=== PATIENT | female | born 1980 | race Caucasian/White ===

== ENCOUNTER 2023-11-29 22:31 | Emergency (ER) | payer OTHER, SELFPAY ==
--- NOTE | ~2023-11-29 | XR_ITS ---
EXAMINATION: XR LUMBOSACRAL SPINE CLINICAL INFORMATION: Pain COMPARISON: None available. TECHNIQUE: Three views of the lumbosacral spine. FINDINGS: Vertebral body heights are maintained. Left L4-L5 facet hypertrophy. No acute fracture. The disc spaces are preserved and the vertebral alignment is normal. Three left sacroiliac arthrodesis screws. The paraspinal soft tissues are normal. XR/XR lumbar spine 2-3V IMPRESSION: 1. No acute fracture or spondylolisthesis of the lumbar spine. 2. Left sacroiliac arthrodesis screws.
--- NOTE | ~2023-11-29 | XR_ITS ---
EXAMINATION: XR HIP, LEFT CLINICAL INFORMATION: Pain. COMPARISON: None available. TECHNIQUE: Two views of the left hip. FINDINGS: The bone mineralization is normal. The joint spaces are maintained. There is no fracture. Left sacroiliac surgical screws are seen in place. The soft tissues are unremarkable XR/XR hip LT w PEL1V IMPRESSION: 1. Unremarkable left hip. 2. Left sacroiliac surgical screws are seen in place.
[2023-11-29 22:50] VITALS: BP 127/80; PULSE 79; RESP 18; TEMP 36.7; O2SAT 97; BMI 28.6
--- NOTE | 2023-11-29 23:18 | ED.GENADULT ---
HPI - General Adult General Chief complaint: Back Pain/Injury Stated complaint: fractures in the spine/screws in left hip Time Seen by Provider: 11/29/23 23:18 History of Present Illness ED Provider: Alcon QUINTANA narrative: The patient is a 43-year-old female who says that she has had low back surgery and also had surgery for her left SI joint. The surgeries were done in [place]. The patient says that about a week ago her teenage son accidentally ?hip checked her when he and his older brother were horsing around. She has had pain in the region of her left SI joint and low back ever since. The pain radiates down the left leg. No complaint of bowel or bladder control problems. The patient has recently returned to this area from out of state and has not yet established any local medical providers Related Data Previous Rx's ?Medication ?Instructions ?Recorded cyclobenzaprine 10 mg tablet 10 mg PO TID PRN muscle spasm #14 11/30/23 tabs Allergies Allergy/AdvReac Type Severity Reaction Status Date / Time sulfamethoxazole Allergy Hives Verified 11/29/23 22:53 [From Bactrim] trimethoprim [From Bactrim] Allergy Hives Verified 11/29/23 22:53 ibuprofen AdvReac Unknown Verified 11/29/23 22:53 NSAIDS (Non-Steroidal AdvReac Unknown Verified 11/29/23 22:53 Anti-Inflamma tramadol AdvReac Anaphylaxis Verified 11/29/23 22:53 trazodone AdvReac Anaphylaxis Verified 11/29/23 22:53 Review of Systems Review of Systems: Yes all other systems are reviewed and are negative PMFSH Social History Social History Smoked in Last 30 Days: Yes Advance Directives: No Advance Directives Information Provided: No Do you have a plan to hurt others: No Plan Patient : No Physical Exam ED Vital Signs: Vital Signs - 24 hr 11/29/23 22:50 11/29/23 23:21 11/30/23 00:57 Temperature 98.0 F 98.3 F 98.3 F Pulse Rate 79 70 65 Respiratory Rate 18 17 17 Blood Pressure 127/80 120/69 127/76 Pulse Oximetry 97 98 98 Oxygen Delivery Method Room Air Room Air Room Air BMI result Body Mass Index 28.6 Const Other: The patient is awake and alert. She does not appear in overt distress or toxic. She seemed to be moving around fairly easily. HENMT Other: Face is symmetrical. Mucous membranes moist. Eyes Other: Pupils were round equal, conjunctivae clear Neck Other: Moving her neck easily Back/Spine/Pelvis Other: The patient had midline tenderness in the lumbar spine region. Also left-sided paraspinous tenderness. Skin Other: Skin is dry and unremarkable Neuro Other: 2+ reflexes at the knees and ankles. Toes go down bilaterally. Intact strength and sensation. Gait seemed steady. Extrem Other: No peripheral edema. No calf swelling or tenderness Medications Administered Discontinued Medications Generic Name Dose Route Start Last Admin Trade Name Freq PRN Reason Stop Dose Admin Acetaminophen 975 mg 11/30/23 00:39 11/30/23 00:55 Acetaminophen 325 Mg Tablet PO 11/30/23 00:40 975 mg ONCE ONE Administration Cyclobenzaprine HCl 10 mg 11/30/23 00:39 11/30/23 00:56 Cyclobenzaprine Hcl 10 Mg Tablet PO 11/30/23 00:40 10 mg ONCE ONE Administration Medical Decision Making Medical Decision Making MDM Narrative: The patient presents complaining of left hip pain after an injury several days ago. She has a history of a lumbar surgery and left sacroiliac surgery. X-rays of the lumbar spine and the pelvis are unremarkable. Surgical hardware looks intact. The patient seems neurologically intact. The patient is reassured. She will be treated with acetaminophen and cyclobenzaprine. She is encouraged to try to get a regular doctor. Discharge Plan Discharge Clinical Impression: Acute left-sided low back pain Patient Disposition: Home, Self-Care Instructions: Acute Low Back Pain (ED) Additional Instructions: Your x-rays do not show any concerning changes to your spine or your left SI joint. I suspect that a lot of the muscles in your left lower back have been irritated. You may use acetaminophen (Tylenol), 2 extra-strength tablets at a time up to 3 times a day. I have also sent a prescription for a muscle relaxant, cyclobenzaprine, that you may use up to 3 times a day as well. No driving on this medication as it may make you drowsy. Please work on getting a new primary care doctor. Return to the emergency room if significantly worse. Prescriptions: New cyclobenzaprine 10 mg tablet 10 mg PO TID PRN (Reason: muscle spasm) Qty: 14 0RF Interventions: ED Discharge Assessment Last Done: 11/30/23 00:57 Discharge Date/Time: 11/30/23 01:00 Print Language: Faroese
[2023-11-29 23:21] VITALS: BP 120/69; PULSE 70; RESP 17; TEMP 36.8; O2SAT 98
[2023-11-30] MEDS: Acetaminophen 325 MG TABLET 975 MG PO (00:55)
[2023-11-30] MEDS: Cyclobenzaprine HCl 10 MG TABLET PO (00:56)
[2023-11-30 00:57] VITALS: BP 127/76; PULSE 65; RESP 17; TEMP 36.8; O2SAT 98
== END 2023-11-30 01:00 | disposition home or self-care (01) ==
PROVIDERS: Emergency Provider Emergency Medicine
DX: M54.50 Low back pain, unspecified (principal)
CPT/HCPCS: 72100; 73502; 99283; 99284

== ENCOUNTER 2024-03-18 18:49 | Emergency (ER) | payer MEDICAID, SELFPAY ==
--- NOTE | ~2024-03-18 | CT_ITS ---
EXAMINATION: CT ABDOMEN AND PELVIS WITHOUT CONTRAST CLINICAL INFORMATION: Abdominal pain. COMPARISON: None available. TECHNIQUE: Multidetector volumetric imaging was performed from the superior aspect of the liver through the pubic symphysis. Sagittal and coronal reformatted images were obtained on the technologist's workstation. This CT examination was performed using dose optimization techniques as appropriate, variously including the following: *Automated exposure control *Adjustment of mA and/or kV according to patient size (this includes techniques or standardized protocols for targeted exams where dose is matched to indication/reason for exam; i.e. extremities or head) *Use of iterative reconstruction technique DLP: 555 mGy-cm FINDINGS: LUNG BASES: The visualized lung bases are unremarkable. LIVER, GALLBLADDER, AND BILIARY TREE: The liver is normal in size, shape, and attenuation. No focal hepatic lesion or biliary ductal dilatation is present. The gallbladder is unremarkable with no evidence of radiopaque gallstones, gallbladder wall thickening, or obvious pericholecystic inflammatory changes. PANCREAS: Unremarkable. SPLEEN: Unremarkable. ADRENAL GLANDS: Unremarkable. KIDNEYS AND URETERS: The kidneys are normal in size, shape, and attenuation. No hydronephrosis, hydroureter, or calculi seen. No perinephric stranding. BLADDER: Unremarkable. GASTROINTESTINAL TRACT: The small and large bowel are unremarkable. The appendix is not seen. There are surgical clips at the base of the cecum. ABDOMINAL WALL: No significant hernia is appreciated. LYMPH NODES: Normal. VASCULAR: Unremarkable. PELVIC VISCERA: Unremarkable. OSSEOUS STRUCTURES: There is postsurgical change of the left pelvis/sacrum. CT/CT abdomen pelvis wo IV con IMPRESSION: No significant abnormality. Fleischner guidelines were followed. Electronically signed by: Bc Whittaker MD 03/19/2024 04:42 AM EST
--- NOTE | 2024-03-18 18:56 | ED.GENADULT ---
HPI - General Adult General Chief complaint: Abdominal Pain Stated complaint: stomach pain/ear & throat pain Time Seen by Provider: 03/19/24 01:06 Source: patient Mode of arrival: ambulatory Limitations: no limitations History of Present Illness ED Provider: DR. Rivera HPI narrative: 43-year-old female presented with 2 days of bilateral ear pain, sore throat, abdominal pain, feeling nauseous, no diarrhea, no vomiting, no recent travel, no recent use of antibiotic, no exposure to bad food, no sick contacts. Last bowel movement was this morning patient said was black stool, passing gas. Surgical history is significant for appendectomy. Related Data Previous Rx's ?Medication ?Instructions ?Recorded cyclobenzaprine 10 mg tablet 10 mg PO TID PRN muscle spasm #14 11/30/23 tabs Allergies Allergy/AdvReac Type Severity Reaction Status Date / Time sulfamethoxazole Allergy Hives Verified 03/18/24 19:01 [From Bactrim] trimethoprim [From Bactrim] Allergy Hives Verified 03/18/24 19:01 ibuprofen AdvReac Unknown Verified 03/18/24 19:01 NSAIDS (Non-Steroidal AdvReac Unknown Verified 03/18/24 19:01 Anti-Inflamma tramadol AdvReac Anaphylaxis Verified 03/18/24 19:01 trazodone AdvReac Anaphylaxis Verified 03/18/24 19:01 Review of Systems Review of Systems: All other systems are reviewed and are negative Constitutional: Reports as per HPI and Reports no additional constitutional complaints Eyes: Reports as per HPI and Reports no additional eye complaints Reports system reviewed and no additional complaints, except as documented Cardiovascular: Reports as per HPI and Reports no additional cardiovascular complaints Respiratory: Reports as per HPI and Reports no additional respiratory complaints Gastrointestinal: Reports as per HPI and Reports no additional gastrointestinal complaints Genitourinary: Reports no additional female genitourinary complaints Musculoskeletal: Reports no additional musculoskeletal complaints Skin/Breast: Reports system reviewed and no additional complaints, except as docu Psychiatric: Reports no additional psychiatric complaints Endocrine: Reports no additional endocrine complaints Hematologic/Lymphatic: Reports no additional hematologic/lymphatic complaints Allergic/Immunologic: Reports no additional allergic/immunologic complaints Reports system reviewed and no additional complaints, except as documented and Reports Abnormal speech present PMFSH Social History Social History Advance Directives: No Advance Directives Information Provided: No Physical Exam ED Vital Signs: Vital Signs - 24 hr 03/18/24 18:57 03/18/24 21:53 03/19/24 00:36 Temperature 98.4 F 97.6 F 98.3 F Pulse Rate 103 H 95 86 Respiratory Rate 16 16 17 Blood Pressure 127/69 133/79 118/71 Pulse Oximetry 98 98 99 Oxygen Delivery Method Room Air Room Air Room Air 03/19/24 02:32 Temperature 98.0 F Pulse Rate 72 Respiratory Rate 16 Blood Pressure 127/60 Pulse Oximetry 99 Oxygen Delivery Method Room Air BMI result Body Mass Index 29.7 Vital signs have been reviewed and appear to be correct. Blood pressure elevated. Heart rate normal. Respiratory rate normal. Temperature normal. Oxygen saturation normal. Appearance: Alert. Oriented X3. No acute distress. Head: Normal external exam. Normocephalic. Atraumatic. No Chambers signs noted. No raccoon eyes noted Eyes: PERRLA. EOMI. Conjunctiva and sclera normal. Eyelids normal. ENT: TM's Normal. Pharynx normal. Uvula midline. Moist mucous membranes. No trismus noted. No drooling noted. No muffled voice noted. Neck: Normal inspection. Neck supple. FROM. No adenopathy. Thyroid Normal. No meningeal signs. No neck mass noted. CVS: Normal heart rate and rhythm. Heart sound normal. No murmurs noted. Pulses normal throughout. Respiratory: No respiratory distress. Painless inspiration. Breath sounds normal. No wheezes/rales/rhonchi noted. Chest nontender. No accessory muscle usage noted or decreased air movement noted. Abdomen: Soft and nontender. Bowel sounds normal in all 4 quadrants. No distention noted. No organomegaly noted. No visible injury noted. Rectal exam: No external hemorrhoids, no palpable into tonight, dark colored stool guaiac negative. Back: No CVA tenderness. Full range of motion noted. Skin: Skin warm and dry. Normal skin color. Normal skin turgor. No rashes/lesions/lacerations noted. Extremities: No lower extremity edema. Extremities exhibit normal range of motion. Extremities nontender. Neuro: Oriented X 3. Cranial nerve exam: II-XII are grossly intact No motor deficit. No sensory deficit. Reflexes normal. Course Course Course Narrative: This is an RME: Additional HPI, ROS, PE not included below will be deferred to primary provider. RME assessment and note performed by: Cathie Fox PA-C This is a [id number], with no known medical problems, who presents to the ER with complaints of sore throat, abdominal pain, and diarrhea. Reports symptoms started this morning. No recent travel or surgeries. Also endorsing racing heart rate. LMP 3 months ago, has had tubal ligation, ablation however reports the endometrium grew back. Plan: Labs, UA, EKG, Viral swabs Reevaluation(s) Reevaluation #1: Feels better, able to tolerate p.o. intake, improvement of the abdominal, CT abdomen pelvis shows no acute intra-abdominal pathology, labs are unremarkable. Time: 05:13 Medications Administered Discontinued Medications Generic Name Dose Route Start Last Admin Trade Name Freq PRN Reason Stop Dose Admin Sodium Chloride 1,000 mls @ 999 mls/hr 03/19/24 01:18 03/19/24 02:59 Ns IV 03/19/24 02:18 Infused .Q1H1M ONE Infusion Morphine Sulfate 1 mg 03/19/24 01:19 03/19/24 01:50 Morphine Sulfate 2 Mg/Ml Cartridge IVPUSH 03/19/24 01:20 1 mg ONCE ONE Administration Protocol Ondansetron HCl 4 mg 03/19/24 01:18 03/19/24 01:50 Ondansetron Hcl 4 Mg/2 Ml Vial IVPUSH 03/19/24 01:19 4 mg ONCE ONE Administration Medical Decision Making Differential Diagnosis Differential Diagnoses: The differential diagnosis associated with the presentation includes (Colitis, diverticulitis, pancreatitis, electrolyte derangement, gastroenteritis, UTI, severe anemia.) Admission/Observation Consideration of admission/observation: Escalation of care including admission/observation considered Lab Data MDM Lab Attestation statement: I reviewed the patient's lab results. 03/18/24 19:46 03/18/24 19:45 Labs: Lab Results 03/18/24 03/18/24 03/18/24 Range/Units 19:45 19:46 19:47 WBC 9.6 (4.8-10.8) X10*3/uL RBC 4.27 (4.20-5.50) X10*6/uL Hgb 13.9 (12.0-16.0) g/dl Hct 39.9 (37.0-47.0) % MCV 93.4 (80.0-98.0) fL MCH 32.6 (27.0-33.0) pg MCHC 34.8 (31.0-35.0) g/dl RDW 12.5 (11.0-16.0) % Plt Count 214 (160-400) X10*3/uL MPV 10.7 (9.4-12.3) fL Immature Gran % (Auto) 0.3 (0.0-0.4) % Neut % (Auto) 57.9 (45-73) % Lymph % (Auto) 32.5 (20-40) % [place] % (Auto) 6.9 (2-11) % Eos % (Auto) 1.7 (0-4) % Baso % (Auto) 0.7 (0-2) % Lymph # (Auto) 3.1 (1.2-4.9) X10*3/uL [place] # (Auto) 0.7 (0.1-1.2) X10*3/uL Eos # (Auto) 0.2 (0.0-0.4) X10*3/uL Baso # (Auto) 0.1 (0.0-0.2) X10*3/uL Abs Immat Gran (auto) 0.03 (0.00-0.03) X10*3/uL Absolute Neuts (auto) 5.6 (2.0-8.3) x10*3/uL Absolute Nucleated RBC 0.000 (0.0-0.012) X10*3/uL Nucleated RBC % (auto) 0.0 (0.0-0.2) /100WBC Sodium 137 (135-145) mmol/L Potassium 3.9 (3.3-5.1) mmol/L Chloride 106 (96-108) mmol/L Carbon Dioxide 23 (22-29) mmol/L Anion Gap 12 (12-20) BUN 15 (9-16) mg/dL Creatinine 0.57 (0.5-1.4) mg/dL Estim Creat Clear Calc 136.5 Estimated GFR > 60 Random Glucose 107 (60-115) mg/dL Calcium 9.6 (8.4-10.2) mg/dL Magnesium 1.9 (1.6-2.6) mg/dL Total Bilirubin 0.1 (0.0-1.0) mg/dL Direct Bilirubin < 0.2 (0.0-0.5) mg/dL AST 17 (5-31) U/L ALT 20 (0-31) U/L Alkaline Phosphatase 61 (39-117) U/L Troponin I High Sens < 2.7 (<3.5-17.0) ng/L Total Protein 7.3 (6.5-8.0) g/dL Albumin 4.3 (3.5-5.0) g/dL Lipase 27 (8-78) U/L TSH 1.31 (0.32-4.0) uIU/mL Beta HCG, Quant < 2 mIU/mL Urine Color Yellow Urine Appearance Clear Urine pH 6.5 (5.0-9.0) Ur Specific [place] 1.015 (1.005-1.025) Urine Protein Negative (Neg-Trace) mg/dL Urine Glucose (UA) Negative (Negative) mg/dL Urine Ketones Negative (Negative) mg/dL Urine Blood Trace H (Negative) Urine Nitrite Negative (Negative) Ur Leukocyte Esterase Negative (Negative) Urine RBC 6-10 H (0-2) /HPF Urine WBC 0-5 (0-5) /HPF Ur Squamous Epith Cells 3-5 (0-2) /HPF Urine Bacteria None Seen (None Seen) Hyaline Casts 0-2 (0-2) /LPF Stool Occult Blood (NEGATIVE) Influenza Type A (PCR) NEGATIVE (Negative) Influenza Type B (PCR) NEGATIVE (Negative) RSV RNA Qual (PCR) NEGATIVE (Negative) SARS-CoV-2 RNA (RT-PCR) NEGATIVE (Negative) S. pyogenes GrpA HERNAN Negative (Negative) 03/19/24 Range/Units 01:56 WBC (4.8-10.8) X10*3/uL RBC (4.20-5.50) X10*6/uL Hgb (12.0-16.0) g/dl Hct (37.0-47.0) % MCV (80.0-98.0) fL MCH (27.0-33.0) pg MCHC (31.0-35.0) g/dl RDW (11.0-16.0) % Plt Count (160-400) X10*3/uL MPV (9.4-12.3) fL Immature Gran % (Auto) (0.0-0.4) % Neut % (Auto) (45-73) % Lymph % (Auto) (20-40) % [place] % (Auto) (2-11) % Eos % (Auto) (0-4) % Baso % (Auto) (0-2) % Lymph # (Auto) (1.2-4.9) X10*3/uL [place] # (Auto) (0.1-1.2) X10*3/uL Eos # (Auto) (0.0-0.4) X10*3/uL Baso # (Auto) (0.0-0.2) X10*3/uL Abs Immat Gran (auto) (0.00-0.03) X10*3/uL Absolute Neuts (auto) (2.0-8.3) x10*3/uL Absolute Nucleated RBC (0.0-0.012) X10*3/uL Nucleated RBC % (auto) (0.0-0.2) /100WBC Sodium (135-145) mmol/L Potassium (3.3-5.1) mmol/L Chloride (96-108) mmol/L Carbon Dioxide (22-29) mmol/L Anion Gap (12-20) BUN (9-16) mg/dL Creatinine (0.5-1.4) mg/dL Estim Creat Clear Calc Estimated GFR Random Glucose (60-115) mg/dL Calcium (8.4-10.2) mg/dL Magnesium (1.6-2.6) mg/dL Total Bilirubin (0.0-1.0) mg/dL Direct Bilirubin (0.0-0.5) mg/dL AST (5-31) U/L ALT (0-31) U/L Alkaline Phosphatase (39-117) U/L Troponin I High Sens (<3.5-17.0) ng/L Total Protein (6.5-8.0) g/dL Albumin (3.5-5.0) g/dL Lipase (8-78) U/L TSH (0.32-4.0) uIU/mL Beta HCG, Quant mIU/mL Urine Color Urine Appearance Urine pH (5.0-9.0) Ur Specific [place] (1.005-1.025) Urine Protein (Neg-Trace) mg/dL Urine Glucose (UA) (Negative) mg/dL Urine Ketones (Negative) mg/dL Urine Blood (Negative) Urine Nitrite (Negative) Ur Leukocyte Esterase (Negative) Urine RBC (0-2) /HPF Urine WBC (0-5) /HPF Ur Squamous Epith Cells (0-2) /HPF Urine Bacteria (None Seen) Hyaline Casts (0-2) /LPF Stool Occult Blood NEGATIVE (NEGATIVE) Influenza Type A (PCR) (Negative) Influenza Type B (PCR) (Negative) RSV RNA Qual (PCR) (Negative) SARS-CoV-2 RNA (RT-PCR) (Negative) S. pyogenes GrpA HERNAN (Negative) Independent Interpretation I performed an independent interpretation of an: CT Scan (Abdomen and pelvis: No acute intra-abdominal pathology.) Radiology Impression Discussion of test interpretation with radiology: I have reviewed the radiologist's reading. Discharge Plan Discharge Clinical Impression: Abdominal pain Patient Disposition: Home, Self-Care Instructions: Abdominal Pain (ED) Prescriptions: No Action cyclobenzaprine 10 mg tablet 10 mg PO TID PRN (Reason: muscle spasm) Qty: 14 0RF Print Language: Setswana
[2024-03-18 18:57] VITALS: BP 127/69; PULSE 103; RESP 16; TEMP 36.9; O2SAT 98; BMI 29.7
--- NOTE | 2024-03-18 18:58 | ECG_ITS ---
Test Reason : palpitations Blood Pressure : / mmHG Vent. Rate : 074 BPM Atrial Rate : 074 BPM P-R Int : 156 ms QRS Dur : 072 ms QT Int : 370 ms P-R-T Axes : 042 006 024 degrees QTc Int : 410 ms Normal sinus rhythm with sinus arrhythmia Normal ECG No previous ECGs available Referred By: Cathie Fox Electronically Signed By:ZACHARIAH BUTLER MD
--- NOTE | 2024-03-18 19:47 | MHC.EDTECH ---
Patient brought into triage area,EKG completed per order and signed by provider,labs/urine/sars/flu/rsv obtained and sent to lab.
[2024-03-18 19:52] LABS: MANUAL DIFF FLAG NO
[2024-03-18 19:57] LABS: Appearance Urine Clear; Glucose Urine UA Negative (Negative); Leukocyte Esterase Urine Negative (Negative); Nitrite Urine Negative (Negative); PH 6.5 (5.0-9.0); Specific Gravity - Urine 1.015 (1.005-1.025); UMIC TRIGGER UACC YES; Urine Blood Trace (Negative); Urine Ketones Negative (Negative); Urine Protein Negative (Neg-Trace)
[2024-03-18 20:00] LABS: Basophils Absolute Auto 0.1 X10*3/uL (0.0-0.2); Basophils Percent Auto 0.7 % (0-2); Eosinophils Absolute Auto 0.2 X10*3/uL (0.0-0.4); Eosinophils Percent Auto 1.7 % (0-4); Hematocrit 39.9 % (37.0-47.0); Hemoglobin 13.9 g/dl (12.0-16.0); Imm Gran Abs Auto 0.03 X10*3/uL (0.00-0.03); Imm Gran Pct Auto 0.3 % (0.0-0.4); Lymphocytes Absolute Auto 3.1 X10*3/uL (1.2-4.9); Lymphocytes Percent Auto 32.5 % (20-40); Mean Corpuscular HGB Conc 34.8 g/dl (31.0-35.0); Mean Corpuscular Hemoglobin 32.6 pg (27.0-33.0); Mean Corpuscular Volume 93.4 fL (80.0-98.0); Mean Platelet Volume 10.7 fL (9.4-12.3); Monocytes Absolute Auto 0.7 X10*3/uL (0.1-1.2); Monocytes Percent Auto 6.9 % (2-11); Neutrophils Absolute Auto 5.6 x10*3/uL (2.0-8.3); Neutrophils Percent Auto 57.9 % (45-73); Platelet Count 214 X10*3/uL (160-400); Red Blood Count 4.27 X10*6/uL (4.20-5.50); Red Cell Distribution Width 12.5 % (11.0-16.0); White Blood Count 9.6 X10*3/uL (4.8-10.8)
[2024-03-18 20:03] LABS: IDNOW Serial# 58CA691E; Strep A Nucleic Acid Negative (Negative)
[2024-03-18 20:08] LABS: Bacteria Urine None Seen (None Seen); Color Urine Yellow; Hyaline Casts Urine 0-2 /LPF (0-2); WBC Urine 0-5 /HPF (0-5)
[2024-03-18 20:19] LABS: Alanine Aminotransferase 20 U/L (0-31); Albumin Level 4.3 g/dL (3.5-5.0); Alkaline Phosphatase 61 U/L (39-117); Anion Gap 12 (12-20); Aspartate Amino Transferase 17 U/L (5-31); Bilirubin Direct < 0.2 mg/dL (0.0-0.5); Bilirubin Total 0.1 mg/dL (0.0-1.0); Blood Urea Nitrogen 15 mg/dL (9-16); Calcium 9.6 mg/dL (8.4-10.2); Carbon Dioxide 23 mmol/L (22-29); Chloride 106 mmol/L (96-108); Creatinine Clr Calc Pharmacy 136.5; Estimated Glomerular Filt Rate > 60; Glucose Random 107 mg/dL (60-115); Lipase 27 U/L (8-78); Magnesium 1.9 mg/dL (1.6-2.6); Potassium 3.9 mmol/L (3.3-5.1); Sodium 137 mmol/L (135-145); Total Protein 7.3 g/dL (6.5-8.0)
[2024-03-18 20:19] LABS: HCG Quantitative < 2 mIU/mL
[2024-03-18 20:21] LABS: Troponin-I High Sensitivity < 2.7 ng/L (<3.5-17.0)
[2024-03-18 20:34] LABS: TSH reflex Free T4 1.31 uIU/mL (0.32-4.0)
[2024-03-18 20:36] LABS: Influenza A PCR NEGATIVE (Negative); Influenza B PCR NEGATIVE (Negative); Resp Syncy Virus RNA Qual PCR NEGATIVE (Negative); SARS COV2 PCR INHOUSE NEGATIVE (Negative)
[2024-03-18 21:53] VITALS: BP 133/79; PULSE 95; RESP 16; TEMP 36.4; O2SAT 98
[2024-03-19 00:36] VITALS: BP 118/71; PULSE 86; RESP 17; TEMP 36.8; O2SAT 99
--- NOTE | 2024-03-19 00:44 | MHC.EDTECH ---
pt changed over into hospital gown and placed on engine monitor
[2024-03-19] MEDS: ondansetron HCL 4 MG/2 ML VIAL IVPUSH (01:50)
[2024-03-19] MEDS: Morphine Sulfate 2 MG/ML CARTRIDGE 1 MG IVPUSH (01:50)
[2024-03-19] MEDS: 0.9 % Sodium Chloride 1,000 ML 999 ML IV (01:51)
[2024-03-19 02:03] LABS: OBS Int Ctl Valid YES; OBS1 NEGATIVE (NEGATIVE)
[2024-03-19 02:32] VITALS: BP 127/60; PULSE 72; RESP 16; TEMP 36.7; O2SAT 99
[2024-03-19 05:25] VITALS: BP 127/60; PULSE 72; RESP 16; TEMP 36.7; O2SAT 99
== END 2024-03-19 05:27 | disposition home or self-care (01) ==
PROVIDERS: Physician Assistant Medical; Emergency Provider Emergency Medicine
DX: H92.03 Otalgia, bilateral (principal); J02.9 Acute pharyngitis, unspecified; R10.2 Pelvic and perineal pain; R11.2 Nausea with vomiting, unspecified; R00.2 Palpitations; I49.8 Other specified cardiac arrhythmias; Z79.899 Other long term (current) drug therapy; Z03.818 Encounter for observation for suspected exposure to other biological agents ruled out
CPT/HCPCS: 0241U; 36415; 74176; 80048; 80076; 81001; 81003; 82272; 83690; 83735; 84443; 84484; 84702; 85025; 87651; 93005; 96361; 96374; 96375; 99284; J2270; J2405

== ENCOUNTER → 2024-03-18 18:58 | Outpatient (BNV) | payer MEDICAID, SELFPAY | PROVIDERS: Emergency Provider Emergency Medicine; Visit Provider Internal Medicine Cardiovascular Disease | DX: R00.2 Palpitations (principal) | CPT/HCPCS: 93010 ==